=== PATIENT | female | born 1980 | race Caucasian/White ===

== ENCOUNTER → 2020-01-26 | Outpatient (CLI) | payer OTHER | END | disposition home or self-care (01) | LOC: EDBD 17:50 → LAB 17:50 → LAB SHORT 17:50 | DX: J02.9 Acute pharyngitis, unspecified (principal) | CPT/HCPCS: 87081 ==

== ENCOUNTER → 2020-11-18 | Outpatient (CLI) | payer OTHER | END | disposition home or self-care (01) | LOC: LAB 12:15 → LAB SHORT 12:15 | DX: R30.0 Dysuria (principal) | CPT/HCPCS: 87077; 87086; 87186 ==

== ENCOUNTER → 2020-11-22 | Outpatient (CLI) | payer OTHER | LOC: LAB SHORT 12:07 → LAB 12:07 | DX: N39.0 Urinary tract infection, site not specified (principal); R31.9 Hematuria, unspecified | CPT/HCPCS: 87077; 87086; 87186 ==

== ENCOUNTER → 2021-02-02 | Outpatient (CLI) | payer OTHER | END | disposition home or self-care (01) | LOC: LAB 09:42 → LAB SHORT 09:42 | DX: R35.0 Frequency of micturition (principal) | CPT/HCPCS: 87077; 87086; 87186 ==

== ENCOUNTER → 2021-05-29 | Outpatient (CLI) | payer OTHER | END | disposition home or self-care (01) | LOC: LAB SHORT 12:20 | DX: J02.9 Acute pharyngitis, unspecified (principal) | CPT/HCPCS: 87081 ==

== ENCOUNTER → 2021-06-20 | Outpatient (CLI) | payer OTHER ==
[2021-06-21 16:07] LABS: HPV 16 Negative (Negative); HPV 18 Negative (Negative); HPV OTHER HR TYPES Positive (Negative)
== END | disposition home or self-care (01) ==
LOC: LAB 13:40 → LAB SHORT 13:40
PROVIDERS: Obstetrics & Gynecology
DX: Z01.419 Encounter for gynecological examination (general) (routine) without abnormal findings (principal)
CPT/HCPCS: 87624; 87625; G0123

== ENCOUNTER 2022-06-05 21:21 | Emergency (ER) | payer OTHER ==
[~2022-06-05] VITALS: Ht 175.3 cm; Wt 86.2 kg
== END 2022-06-06 01:52 | disposition home or self-care (01) ==
LOC: ER 21:21
DX: K42.9 Umbilical hernia without obstruction or gangrene (principal); F41.9 Anxiety disorder, unspecified
CPT/HCPCS: 99283

== ENCOUNTER 2022-11-26 08:44 | Day surgery (SDC) | payer OTHER ==
[~2022-11-26] VITALS: Ht 172.7 cm; Wt 85.5 kg
[2022-11-26] VITALS (7 sets, daily range): BP systolic 98–106; BP diastolic 60–73
[~2022-11-26 08:44] MED LIST: Acetaminophen650 M1 PO
--- NOTE | 2022-11-26 09:45 | NUR ---
Ambulatory in Day Surgery History, Chart, Medications and Allergies reviewed before start of procedure. Pre-Op teaching done. Pt verbalizes understanding. Patient States Post-Procedure ride home has been arranged.
--- NOTE | 2022-11-26 12:44 | NUR ---
DISCHARGE SUMMARY PT [id number], VSS/RA, SAMMI PO H20, VOIDED, AMB IND/DRESSED SELF, ABD BINDER ON, IV DC'D, PAIN TREATED. DC INS PROVIDED. PT REP UNDERSTANDING THOSE INSTRUCTIONS INCLUDING FU [address], WHEN TO CALL THE DR, OK TO REMOVE DRESSING 24 HRS/ TOMORROW OK TO SHOWER, NO LIFTING >10 LBS/PUSH/PULL, NO DRIVING WHILE TAKING NARCOTICS AND 24 HR FROM NOW. LEFT VIA WC WITH RN TO GO HOME WITH BOYFRIEND/ CORRECTIONS IDENTIFICATION TECHNICIAN, WITH ALL PERSONAL POSSESSIONS INCLUDING DC PACKET.
== END 2022-11-26 12:45 | disposition home or self-care (01) ==
LOC: ORSCMMR 08:44 → ORD 09:45 → ORSCMMR 12:45
PROVIDERS: Surgery
PROC: 0WUF0JZ Supplement Abdominal Wall with Synthetic Substitute, Open Approach (ICD-10-PCS; principal; 2022-11-26 09:45)
DX: K43.6 Other and unspecified ventral hernia with obstruction, without gangrene (principal)
CPT/HCPCS: A9270; C1781; J0690; J1100; J2250; J2405; J2704; J2765; J3010; J7120

== ENCOUNTER → 2023-02-10 | Outpatient (CLI) | payer OTHER ==
[2023-02-13 15:11] LABS: HPV 16 Negative (Negative); HPV 18 Negative (Negative); HPV OTHER HR TYPES Negative (Negative)
== END | disposition home or self-care (01) ==
LOC: LAB SHORT 18:28 → PLD 18:28
PROVIDERS: Obstetrics & Gynecology
DX: Z01.419 Encounter for gynecological examination (general) (routine) without abnormal findings (principal); N92.0 Excessive and frequent menstruation with regular cycle
CPT/HCPCS: 87624; 88305; G0145